=== PATIENT | female | born 1985 | race Two or more races ===

== ENCOUNTER 2023-02-02 03:29 | Inpatient (IN) | payer OTHER ==
[~2023-02-02] VITALS: Ht 152.4 cm; Wt 68.5 kg
[2023-02-02] MEDS ORDERED: PRENATAL CAPLE1 EAC1 PO (03:32)
== END 2023-02-04 16:30 | disposition home or self-care (01) | DRG 806 ==
LOC: OB/GYN 03:29 → LDR 03:29 → OB/GYN 09:39
PROVIDERS: ADMIT Specialist; ATTEND Specialist
PROC: 10D17Z9 Manual Extraction of Products of Conception, Retained, Via Natural or Artificial Opening (ICD-10-PCS; 2023-02-02)
PROC: 0HQ9XZZ Repair Perineum Skin, External Approach (ICD-10-PCS; 2023-02-02)
PROC: 30233N1 Transfusion of Nonautologous Red Blood Cells into Peripheral Vein, Percutaneous Approach (ICD-10-PCS; 2023-02-02)
PROC: 4A1HXCZ Monitoring of Products of Conception, Cardiac Rate, External Approach (ICD-10-PCS; 2023-02-02)
PROC: 10E0XZZ Delivery of Products of Conception, External Approach (ICD-10-PCS; principal; 2023-02-02 06:15)
PROC: BU4CZZZ Ultrasonography of Uterus and Ovaries (ICD-10-PCS; 2023-02-03)
DX: O70.0 First degree perineal laceration during delivery (principal); D62 Acute posthemorrhagic anemia; Z37.0 Single live birth; O72.0 Third-stage hemorrhage; O99.02 Anemia complicating childbirth; Z3A.38 38 weeks gestation of pregnancy; Z20.822 Contact with and (suspected) exposure to COVID-19

== ENCOUNTER 2024-07-21 10:30 | Day surgery (SDC) | payer OTHER ==
[~2024-07-21 10:30] MED LIST: PRENATAL CAPLE1 EAC1 PO
[2024-07-21] MEDS ORDERED: BUPIVACAINE HCL/PF 0.25% 30ML VIAL InF ONE (17:15)
[2024-07-21] MEDS ORDERED: POVIDONE-IODINE 118 ML BOTT TOP ONE (17:15)
[2024-07-21] MEDS ORDERED: CEFAZOLIN SODIUM 1,000 MG VIAL IV ONE (17:15)
[2024-07-21] MEDS ORDERED: SURFAK240 M1 PO (17:29)
[2024-07-21] MEDS ORDERED: IBU800 MG PO (17:29)
[2024-07-21] MEDS ORDERED: KETOROLAC TROMETHAMINE 60 MG VIAL IM ONE (17:30)
[2024-07-21] MEDS ORDERED: PROMETHAZINE HCL 25 MG/ML AMPUL IV SCH (17:45)
[2024-07-21] MEDS ORDERED: MEPERIDINE HCL/PF 25 MG/ML VIAL IV SCH (17:45)
[2024-07-21] MEDS ORDERED: MORPHINE SULFATE 4 MG/ML VIAL IV ONE (18:10)
== END 2024-07-21 19:55 | disposition home or self-care (01) ==
LOC: CIR.AMB 10:30
PROVIDERS: ATTEND Specialist
DX: R10.2 Pelvic and perineal pain (principal); Z30.2 Encounter for sterilization; T83.32XA Displacement of intrauterine contraceptive device, initial encounter